=== PATIENT | female | born 2000 | race Caucasian/White ===

== ENCOUNTER 2021-05-03 20:09 | Emergency (ER) | payer MEDICAID, OTHER ==
[~2021-05-03] VITALS: Ht 157.5 cm; Wt 70.0 kg
[2021-05-03 22:04] LABS: BASOPHILS % 0.5 % (0.0-2.0); EOSINOPHILS % 1.6 % (0.0-5.0); HEMATOCRIT. 39.5 % (36.0-48.0); HEMOGLOBIN. 13.9 g/dL (12.0-16.0); LYMPHOCYTES % 30.2 % (20.0-50.0); MEAN CORPUSCULAR HEMOGLOBIN 31.6 pg (28.0-32.0); MEAN CORPUSCULAR VOLUME 89.9 fL (81.0-99.0); MEAN PLATELET VOLUME 9.8 fl (7.4-10.4); MONOCYTES % 13.1 % (2.0-8.0); NEUTROPHILS % 54.6 % (40.0-76.0); PLATELET 268 x1000/uL (130-400); RED CELL DISTRIBUTION WIDTH 13.5 % (11.6-14.6)
[2021-05-03 22:11] LABS: CHLORIDE 109 mEq/L (98-107)
[2021-05-03] MEDS ORDERED: ASPIRIN 325MG EC TABLET PO ONE (22:45)
[2021-05-04] MEDS ORDERED: IOHEXOL-350 100 ML BOTTLE ONE (00:01)
[2021-05-04 01:57] VITALS: BP 110/72
[2021-05-04 09:13] LABS: *AMPHETAMINES SCREEN URINE NEGATIVE (NEGATIVE); *BARBITURATES SCREEN URINE NEGATIVE (NEGATIVE); *BENZODIAZEPINES SCREEN URINE NEGATIVE (NEGATIVE); *COCAINE SCREEN URINE NEGATIVE (NEGATIVE); METHADONE URINE SCREEN NEGATIVE (NEGATIVE); OPIATES URINE SCREEN NEGATIVE (NEGATIVE)
[2021-05-04 09:14] LABS: CANNABINOID URINE SCREEN NEGATIVE (NEGATIVE); PHENCYCLIDINE URINE SCREEN NEGATIVE (NEGATIVE)
== END 2021-05-04 02:17 | disposition short-term general hospital (02) ==
LOC: ER 20:09
DX: J93.9 Pneumothorax, unspecified (principal); I45.2 Bifascicular block; R00.0 Tachycardia, unspecified; R94.31 Abnormal electrocardiogram [ECG] [EKG]; Z20.822 Contact with and (suspected) exposure to COVID-19; D89.89 Other specified disorders involving the immune mechanism, not elsewhere classified
CPT/HCPCS: 36415; 71045; 71275; 80053; 80305; 81025; 83880; 84484; 85025; 85379; 87426; 93005; 99285; Q9967